=== PATIENT | male | born 1955 | race Two or more races ===

== ENCOUNTER 2024-04-22 16:22 | Emergency (ER) | payer OTHER ==
[~2024-04-22] VITALS: Ht 162.6 cm; Wt 79.4 kg
[2024-04-22] MEDS ORDERED: IPRATROPIUM BROMIDE 0.5 MG/2.5 ML AMPUL.NEB IH STA (17:54)
[2024-04-22] MEDS ORDERED: CLONIDINE HCL 0.1 MG TABLET PO STA (17:55)
[2024-04-22] MEDS ORDERED: BUDESONIDE 0.5 MG/2 ML AMPUL.NEB IH STA (17:55)
[2024-04-22] MEDS ORDERED: GUAIFENESIN 200 MG/10 ML BLIST.PACK PO STA (17:56)
[2024-04-22 18:25] LABS: HEMATOCRIT 42.7 % (39.0-48.0); HEMOGLOBIN 14.6 g/dL (13-16.00); MEAN CORPUSCULAR HEMOGLOBIN 28.7 pg (27.00-32.0); MEAN CORPUSCULAR HGB CONC 34.2 g/dl (32.0-36.0); PLATELET COUNT 187 K/uL (150-450); RED BLOOD COUNT 5.08 M/uL (4.00-6.00); RED CELL DISTRIBUTION WIDTH 14.4 % (11.5-14.5)
== END 2024-04-22 19:57 | disposition home or self-care (01) ==
LOC: ER 16:23
PROVIDERS: General Practice
DX: R05.8 Other specified cough (principal); Z88.8 Allergy status to other drugs, medicaments and biological substances; I10 Essential (primary) hypertension; E11.9 Type 2 diabetes mellitus without complications; Z20.822 Contact with and (suspected) exposure to COVID-19

== ENCOUNTER 2024-12-29 12:49 | Emergency (ER) | payer OTHER ==
[~2024-12-29] VITALS: Ht 162.6 cm; Wt 77.1 kg
[2024-12-29] MEDS ORDERED: ATORVASTATIN CA40 MG PO (13:02)
[2024-12-29] MEDS ORDERED: PROTECT PLUS S1 EACH PO (13:03)
[2024-12-29] MEDS ORDERED: PIOGLITAZONE HC15 MG PO (13:03)
[2024-12-29] MEDS ORDERED: LANTUS SOL100 UNIT/1 (13:03)
[2024-12-29] MEDS ORDERED: HYDROCHLOROTH12.5 M2 PO (13:03)
[2024-12-29] MEDS ORDERED: CETIRIZINE HCL10 MG PO (13:04)
[2024-12-29] MEDS ORDERED: ST. JOSEPH ASPI81 M2 PO (13:04)
[2024-12-29] MEDS ORDERED: LOSARTAN POTAS100 MG PO (13:04)
[2024-12-29] MEDS ORDERED: TRIJARDY XR 251 EACH PO (13:05)
[2024-12-29] MEDS ORDERED: PANTOPRAZOLE SO40 MG PO (13:05)
[2024-12-29] MEDS ORDERED: NIFEDIPINE20 MG PO (13:06)
[2024-12-29] MEDS ORDERED: ACETAMINOPHEN 500 MG GEL..CAP PO STA (13:36)
[2024-12-29] MEDS ORDERED: GUAIFENESIN/DEXTROMETHORPHAN 100MG/10ML BLIST.PACK PO STA (13:36)
[2024-12-29] MEDS ORDERED: DEXAMETHASONE SODIUM PHOSPHATE 4 MG/ML VIAL IM STA (13:36)
[2024-12-29] MEDS ORDERED: DEXAMETHASONE SODIUM PHOSPHATE 4 MG/ML VIAL ONE (13:44)
[2024-12-29] MEDS ORDERED: ACETAMINOPHEN 500 MG GEL..CAP PO ONE (13:44)
[2024-12-29] MEDS ORDERED: GUAIFENESIN 200 MG/10 ML BLIST.PACK PO ONE (13:45)
[2024-12-29 14:11] LABS: BASO % 0.4 % (0.1-1.2); EOS # 0.03 (0.04-0.54); EOS % 0.2 % (0.7-7.0); HEMATOCRIT 45.2 % (40.1-51.0); LYMPH # 1.42 (1.18-3.74); LYMPH % 7.3 % (19.3-53.1); MONO # 1.47 (0.24-0.82); MONO % 7.6 % (4.7-12.5); NEUT # 16.22 (1.56-6.13); NEUT % 83.9 % (34.0-71.1); PLATELET COUNT 185 K/uL (163-369); RED BLOOD COUNT 5.18 M/uL (4.63-6.08)
[2024-12-29] MEDS ORDERED: CEFTRIAXONE SODIUM 1,000 MG VIAL IV STA (14:24)
[2024-12-29 14:34] LABS: CALCIUM 9.6 mg/dL (8.5-10.1); CREATININE SERUM 1.26 mg/dL (0.70-1.30); GFR 56.91; POTASSIUM 3.56 mEq/L (3.5-5.1)
[2024-12-29] MEDS ORDERED: CEFTRIAXONE SODIUM 1,000 MG VIAL ONE (14:35)
[2024-12-29 14:42] LABS: COVID-19 AG NEGATIVE (NEGATIVE); INFLUENZA A AG NEGATIVE (NEGATIVE); INFLUENZA B AG NEGATIVE (NEGATIVE)
[2024-12-29 14:49] LABS: URINE APPEARANCE Clear; URINE BILIRRUBIN Negative (NEGATIVE); URINE BLOOD Negative; URINE COLOR Yellow; URINE KETONE Negative (NEGATIVE); URINE LEUKOCYTE Trace; URINE NITRATE Negative; URINE PROTEIN Negative (NEGATIVE); URINE UROBILINOGEN 0.2 E.U./dl
[2024-12-29 14:50] LABS: URINE WBC 131.6 uL (0.0-23.2)
[2024-12-29 14:52] LABS: URINE BACTERIA > 9821.5 uL (0.0-1933); URINE EPITHELIAL CELLS 0.4 uL (0.0-38.8); URINE GLUCOSE >=1000 MG/DL (NEGATIVE)
[2024-12-29] MEDS ORDERED: 0.9 % SODIUM CHLORIDE 1,000 ML IV STA (15:21)
[2024-12-29] MEDS ORDERED: 0.9 % SODIUM CHLORIDE 1,000 ML IV SCH (17:30)
== END 2024-12-29 18:34 | disposition home or self-care (01) ==
LOC: ER 13:25
PROVIDERS: General Practice
DX: R50.9 Fever, unspecified (principal); Z20.822 Contact with and (suspected) exposure to COVID-19; I10 Essential (primary) hypertension; E11.9 Type 2 diabetes mellitus without complications; Z79.4 Long term (current) use of insulin; Z88.8 Allergy status to other drugs, medicaments and biological substances
CPT/HCPCS: 36415; 71046; 74176; 96365; 96366; 96372; 99284; J0696; J1100; J7030 ×2